=== PATIENT | female | born 1980 | race Caucasian/White ===

== ENCOUNTER 2016-10-10 09:37 | Emergency (ER) | payer MEDICAID ==
[2016-10-10 09:43] VITALS: TEMP 97.9
--- NOTE | 2016-10-10 10:21 | EDPHY ---
H & P Stated Complaint: ELLIOTT for 24 hrs hx of migraines Time Seen by Provider: 10/10/16 10:07 HPI/ROS: CHIEF COMPLAINT: Migraine HISTORY OF PRESENT ILLNESS: This is a 36-year-old female presenting to the emergency department complaining of migraine headache x2 days under resolving with ibuprofen and Tylenol. Patient states she does have a history of migraines has been intermittently seeing Neurology,her last follow-up with Neurology was [address] head negative CTA in 02/13/2015. Patient states the migraine is very similar in symptoms, patient states she has been under lot of stress and has a history of anxiety, panic attack. Denies any chest pain shortness of breath nausea vomiting REVIEW OF SYSTEMS: Constitutional: No fever, no chills. Eyes: Light sensitivity. No blurred vision ENT: No sore throat. Cardiovascular: No chest pain, no palpitations. Respiratory: No cough, no shortness of breath. Gastrointestinal: No abdominal pain, no vomiting. Intermittent nausea Genitourinary: No hematuria. Musculoskeletal: No back pain. Skin: No rashes. Neurological: headache. Source: Patient - Personal History LMP (Females 10-55): 1-7 Days Ago Current Tetanus/Diphtheria Vaccine: Yes Current Tetanus Diphtheria and Acellular Pertussis (TDAP): Yes - Medical/Surgical History Hx Asthma: No Hx Chronic Respiratory Disease: No Hx Diabetes: No Hx Cardiac Disease: No Hx Renal Disease: No Hx Cirrhosis: No Hx Alcoholism: No Hx HIV/AIDS: No Hx Splenectomy or Spleen Trauma: No Other PMH: Migraines, HTN - Social History Smoking Status: Never smoked - Physical Exam Exam: General Appearance: Alert, no distress. Eyes: PERRLA. no pallor or injection. ENT, Mouth: Mucous membranes moist. Respiratory: There are no retractions, lungs are clear to auscultation. Cardiovascular: Regular rate and rhythm. Gastrointestinal: Abdomen is soft and nontender, no masses. Neurological: No focal deficits. Ambulatory without gait disturbance Skin: Warm and dry, no rashes. Musculoskeletal: Neck is supple nontender. Full range of motion Extremities: symmetrical, full range of motion. Psychiatric: Patient is oriented X 3, there is no agitation. Acting appropriate Constitutional: Initial Vital Signs Temperature (C) 36.6 C 10/10/16 09:41 Heart Rate 54 L 10/10/16 09:41 Respiratory Rate 16 10/10/16 09:41 Blood Pressure 157/92 H 10/10/16 09:41 O2 Sat (%) 97 10/10/16 09:41 O2 Delivery Mode Room Air Allergies/Adverse Reactions: EGGS Allergy (Uncoded 03/30/12 14:05) INDIGESTION IF EATED BY THEMSELVES-OKAY IN OTHER FOODS Home Medications: Medication Instructions Recorded 1 tab PO DAILY 05/31/13 Medical Decision Making ED Course/Re-evaluation: Discussed the plan of care: Reviewed old medical records CT head CTA from 2014. IV Toradol, dexamethasone, Benadryl, Reglan. Patient re-evaluation reports read 0/ 10 headache, no blurred vision no nausea vomiting. Discharge home---> stable, discussed discharge instructions patient follow up with primary care provider re-evaluated blood pressure also follow up with Neurology Differential Diagnosis: Other differential diagnosis considered but not limited to CVA, anxiety attack, and cluster headache tension headache - Data Points Medications Given: Discontinued Medications Dexamethasone (Decadron Injection) 10 mg IVP EDNOW ONE Stop: 10/10/16 10:32 Last Admin: 10/10/16 10:40 Dose: 10 mg Diphenhydramine HCl (Benadryl Injection) 25 mg IVP EDNOW ONE Stop: 10/10/16 10:32 Last Admin: 10/10/16 10:40 Dose: 25 mg Ketorolac Tromethamine (Toradol) 30 mg IVP EDNOW ONE Stop: 10/10/16 10:32 Last Admin: 10/10/16 10:40 Dose: 30 mg Metoclopramide HCl (Reglan Injection) 10 mg IVP EDNOW ONE Stop: 10/10/16 10:32 Last Admin: 10/10/16 10:40 Dose: 10 mg Departure - Departure Disposition: Home, Routine, Self-Care Clinical Impression: Migraine Qualifiers: Migraine type: without aura Status migrainosus presence: without status migrainosus Intractability: not intractable Qualified Code(s): G43.009 - Migraine without aura, not intractable, without status migrainosus Hypertension Qualifiers: Hypertension type: essential hypertension Qualified Code(s): I10 - Essential ( primary) hypertension Condition: Good Instructions: Migraine Headache (ED), Hypertension (ED) Additional Instructions: Discussed discharge instructions 1. Follow up with your primary care provider next week to re-evaluate your blood pressure 2. Follow up with Neurology next week 3. If at any point time worsening migraine symptoms are different than normal nausea vomiting changes in mentation return to the ER Referrals: Florinda Westfall PA [Primary Care Provider] - As per Instructions Mario Sheppard MD [Medical Doctor] - As per Instructions
[2016-10-10] MEDS ORDERED: METOCLOPRAMIDE 10 MG/2 ML VIAL IVP ONE (10:31)
[2016-10-10] MEDS ORDERED: KETOROLAC 30 MG/1 ML SDV IVP ONE (10:31)
[2016-10-10] MEDS ORDERED: DEXAMETHASONE 10 MG/ML VIAL IVP ONE (10:31)
[2016-10-10 12:13] VITALS: BP 153/103; PULSE 56; RESP 18; O2SAT 98
== END 2016-10-10 12:46 | disposition home or self-care (01) ==
DX: G43.009 Migraine without aura, not intractable, without status migrainosus (principal); I10 Essential (primary) hypertension
CPT/HCPCS: 96374; J1200; J1885; J2765

== ENCOUNTER 2018-04-22 11:47 | Emergency (ER) | payer MEDICAID ==
[2018-04-22] MEDS ORDERED: DIAZEPAM 5 MG/ML 1 ML SYR IVP ONE (12:06)
[2018-04-22] MEDS ORDERED: KETOROLAC 15 MG/1 ML SDV IVP ONE (12:06)
[2018-04-22] MEDS ORDERED: LIDOCAINE 4%/MENTHOL 1% PATCH TD ONE (12:06)
[2018-04-22] MEDS ORDERED: DEXAMETHASONE 4 MG/ML VIAL IVP ONE (12:06)
--- NOTE | 2018-04-22 12:08 | EDPHY ---
H & P Stated Complaint: R lower back pain--since last night after twisting on toilet Time Seen by Provider: 04/22/18 12:01 HPI/ROS: CHIEF COMPLAINT: Back pain HISTORY OF PRESENT ILLNESS: The patient presents the ED with complaints of back pain predominantly localized to the right sacroiliac joint. The patient believes she did sustain a twisting injury yesterday while on the toilet. She denies any acute numbness or weakness in her lower extremities. She does have a prior history of right sacroiliitis. She denies any prior history of back surgery. She denies any bowel or bladder dysfunction. She denies any prior history of spine surgery. The patient has taken [id number] ibuprofen and prescription OxyContin with minimal improvement of her symptoms. REVIEW OF SYSTEMS: A comprehensive 10 point review of systems is otherwise negative aside from elements mentioned in the history of present illness. Source: Patient Exam Limitations: No limitations - Personal History LMP (Females 10-55): 8-14 Days Ago Current Tetanus/Diphtheria Vaccine: No Current Tetanus Diphtheria and Acellular Pertussis (TDAP): No - Medical/Surgical History Hx Asthma: No Hx Chronic Respiratory Disease: No Hx Diabetes: No Hx Cardiac Disease: No Hx Renal Disease: No Hx Cirrhosis: No Hx Alcoholism: No Hx HIV/AIDS: No Hx Splenectomy or Spleen Trauma: No Other PMH: Migraines, HTN - Social History Smoking Status: Never smoked - Physical Exam Exam: General Appearance: Alert, no distress Eyes: Pupils equal and round no pallor or injection ENT, Mouth: Mucous membranes moist Respiratory: There are no retractions, lungs are clear to auscultation Cardiovascular: Regular rate and rhythm Gastrointestinal: Abdomen is soft and nontender, no masses, bowel sounds normal Neurological: 5/5 strength noted bilateral lower extremities, normal motor sensory exam Skin: Warm and dry, no rashes Musculoskeletal: Tenderness to palpation noted over the right sacroiliac joint and along the right paralumbar musculature Extremities: symmetrical, full range of motion Constitutional: Initial Vital Signs Temperature (C) 36.7 C 04/22/18 11:52 Heart Rate 67 04/22/18 11:52 Respiratory Rate 16 04/22/18 11:52 Blood Pressure 167/103 H 04/22/18 11:52 O2 Sat (%) 97 04/22/18 11:52 O2 Delivery Mode Room Air Allergies/Adverse Reactions: No Known Allergies Allergy (Unverified 04/22/18 11:52) Home Medications: Medication Instructions Recorded 1 tab PO DAILY 05/31/13 Lisinopril 04/22/18 Medical Decision Making ED Course/Re-evaluation: The patient presents the emergency department with acute myofascial low back pain. She is neurologically intact. Patient was treated with oral Valium, IV Toradol, IV Decadron and a lidocaine patch. I re-evaluated the patient at 2:00 p.m. and she is feeling better. Exam is consistent with myofascial strain or mild sacroiliitis. The patient will be discharged home with a prescription for Flexeril and lidocaine patches. She is advised to continue to use Advil. The patient is given customary aftercare instructions and return precautions. Differential Diagnosis: Differential diagnosis considered includes myofascial strain, lumbar radiculopathy, sacroiliitis - Data Points Medications Given: Discontinued Medications Dexamethasone (Decadron Injection) 8 mg IVP EDNOW ONE Stop: 04/22/18 12:07 Last Admin: 04/22/18 12:24 Dose: 8 mg Diazepam (Valium) 5 mg IVP EDNOW ONE Stop: 04/22/18 12:07 Last Admin: 04/22/18 12:22 Dose: 5 mg Ketorolac Tromethamine (Toradol) 15 mg IVP EDNOW ONE Stop: 04/22/18 12:07 Last Admin: 04/22/18 12:24 Dose: 15 mg Miscellaneous Medication (Icy Hot Lidocaine/Menthol 4%/1% Patch) 1 patch TD EDNOW ONE Stop: 04/22/18 12:07 Last Admin: 04/22/18 12:25 Dose: 1 patch Departure - Departure Disposition: Home, Routine, Self-Care Clinical Impression: Back spasm Condition: Good Instructions: Muscle Spasm (ED) Additional Instructions: 1. Take Ibuprofen or Motrin 600 mg by mouth three times a day. 2. Lidocaine patches as directed 3. Flexeril as needed for muscle relaxant 4. Return to the ED for markedly worsening pain, numbness, weakness or other concerns. 5. Please follow-up with your primary care provider as needed. Referrals: Florinda Westfall PA [Primary Care Provider] - As per Instructions
[2018-04-22 13:36] VITALS: BP 120/73
[2018-04-22] MEDS ORDERED: PATCH REMOVAL 1 EA PATCH TD SCH (21:00)
== END 2018-04-22 14:03 | disposition home or self-care (01) ==
DX: M62.830 Muscle spasm of back (principal); G43.909 Migraine, unspecified, not intractable, without status migrainosus; I10 Essential (primary) hypertension
CPT/HCPCS: 96374; J1100; J1885; J3360